=== PATIENT | female | born 1940 | race Caucasian/White ===

== ENCOUNTER 2017-10-08 21:28 | Emergency (ER) | payer MEDICARE, OTHER ==
[~2017-10-08] VITALS: Ht 162.6 cm; Wt 73.8 kg
[2017-10-08 22:34] LABS: INFLUENZA A NONE DETECTED (NONE DETECT); INFLUENZA B NONE DETECTED (NONE DETECT)
[2017-10-08] MEDS ORDERED: AMOXICILLIN500 MG PO (23:14)
[2017-10-08 23:38] VITALS: BP 178/93
== END 2017-10-08 23:38 | disposition home or self-care (01) ==
LOC: ED 21:28
PROVIDERS: Emergency Medicine
DX: J40 Bronchitis, not specified as acute or chronic (principal); I10 Essential (primary) hypertension; E11.9 Type 2 diabetes mellitus without complications; Z87.01 Personal history of pneumonia (recurrent)

== ENCOUNTER 2018-09-23 11:35 | Emergency (ER) | payer MEDICARE, OTHER ==
[~2018-09-23] VITALS: Ht 162.6 cm; Wt 82.0 kg
[~2018-09-23 11:35] MED LIST: AMOXICILLIN500 MG PO
[2018-09-23] MEDS ORDERED: JANUVIA100 MG PO (11:51)
[2018-09-23] MEDS ORDERED: OMEPRAZOLE10 MG PO (11:52)
[2018-09-23] MEDS ORDERED: CALCIUM MAGNESIUM & PO (11:53)
[2018-09-23] MEDS ORDERED: NORVASC5 M1 PO (11:53)
[2018-09-23] MEDS ORDERED: METFORMIN500 MG PO (11:54)
[2018-09-23] MEDS ORDERED: COLESTIPOL1 GM PO (11:55)
[2018-09-23 12:24] LABS: HEMOGLOBIN 14.7 g/dl (12.0-16.0); IMMATURE GRANULOCYTES 0.2 % (0.0-5.0); MEAN CELL VOLUME 96.5 fL CALC (80.0-100.0); MEAN CORPUSCULAR HGB 32.2 pG CALC (26.0-32.0); MEAN CORPUSCULAR HGB CONC 33.4 g/L CALC (32.0-36.0); NEUT# 4.08 thou/uL (2.00-7.15); RED BLOOD COUNT 4.56 mill/uL (4.20-5.60); RED CELL DISTRI WIDTH 12.3 % (11.5-15.5)
[2018-09-23 12:35] LABS: ALBUMIN 4.3 g/dL (3.2-5.0); ALKALINE PHOSPHATASE 116 u/l (38-126); ANION GAP 16 (6-22 (CALC)); BILIRUBIN, TOTAL 0.7 mg/dL (0.0-1.4); BUN 16 mg/dL (8-23); BUN/CREATININE RATIO 20 (12-20 (CALC)); CARBON DIOXIDE 23 mmol/l (22-30); CHLORIDE 104 mmol/l (95-108); CREATININE 0.8 mg/dL (0.5-1.0); GFR > 60 ML/MIN (>=60 (CALC)); GFR FOR AFR.AMER. > 60 ML/MIN (>=60 (CALC)); POTASSIUM 4.3 mmol/l (3.5-5.1); SGOT/AST 68 u/l (9-36); SODIUM 139 mmol/l (137-146); TOTAL PROTEIN 7.3 g/dL (6.3-8.2)
[2018-09-23] MEDS ORDERED: MEDDOSEPAK PO (13:02)
[2018-09-23] MEDS ORDERED: BENADRYL 50MG C50 MG PO (13:02)
[2018-09-23 13:06] VITALS: BP 161/72
== END 2018-09-23 13:14 | disposition home or self-care (01) ==
LOC: ED 11:35
DX: J39.2 Other diseases of pharynx (principal); I10 Essential (primary) hypertension; E11.9 Type 2 diabetes mellitus without complications

== ENCOUNTER 2020-11-02 04:07 | Emergency (ER) | payer MEDICARE ==
[~2020-11-02] VITALS: Ht 160 cm; Wt 68.0 kg
[~2020-11-02 04:07] MED LIST changes: +BENADRYL 50MG C50 MG PO; +CALCIUM MAGNESIUM & PO; +COLESTIPOL1 GM PO; +JANUVIA100 MG PO; +MEDDOSEPAK PO; +METFORMIN500 M2 PO; +NORVASC5 M1 PO; +OMEPRAZOLE10 MG PO
[2020-11-02] MEDS ORDERED: INVOKANA100 MG PO (04:41)
[2020-11-02 05:18] LABS: HEMATOCRIT 42.7 % (37.0-47.0); HEMOGLOBIN 13.7 g/dl (12.0-16.0); IMMATURE GRANULOCYTES 0.2 % (0.0-5.0); MEAN CELL VOLUME 96.2 fL CALC (80.0-100.0); MEAN CORPUSCULAR HGB 30.9 pG CALC (26.0-32.0); MEAN CORPUSCULAR HGB CONC 32.1 g/dL CAL (32.0-36.0); NEUT# 2.5 thou/uL (2.00-7.15); RED BLOOD COUNT 4.44 mill/uL (4.20-5.60)
[2020-11-02 05:35] LABS: ALBUMIN 4.1 g/dL (3.2-5.0); ALKALINE PHOSPHATASE 91 u/l (38-126); ANION GAP 11 (6-22 (CALC)); BILIRUBIN, TOTAL 0.6 mg/dL (0.0-1.4); BUN 15 mg/dL (8-23); BUN/CREATININE RATIO 20 (12-20 (CALC)); CARBON DIOXIDE 27 mmol/l (22-30); CHLORIDE 106 mmol/l (95-108); CREATININE 0.8 mg/dL (0.5-1.0); GFR > 60 ML/MIN (>=60 (CALC)); GFR FOR AFR.AMER. > 60 ML/MIN (>=60 (CALC)); POTASSIUM 4.3 mmol/l (3.5-5.1); SGOT/AST 54 u/l (9-36); SODIUM 140 mmol/l (137-146); TOTAL PROTEIN 6.7 g/dL (6.3-8.2)
[2020-11-02 05:49] LABS: INTERNATIONAL NORMALIZED RATIO 1.1 RATIO (0.7-1.3); PROTHROMBIN TIME 10.9 SECONDS (9.0-12.5)
[2020-11-02] MEDS ORDERED: TORADOL PO (07:14)
[2020-11-02] MEDS ORDERED: ORPHENADRINE100 MG PO (07:14)
[2020-11-02 07:56] VITALS: BP 120/60
== END 2020-11-02 08:20 | disposition home or self-care (01) ==
LOC: ED 04:07
PROVIDERS: Emergency Medicine
DX: M79.651 Pain in right thigh (principal); M25.561 Pain in right knee; I10 Essential (primary) hypertension; E11.9 Type 2 diabetes mellitus without complications; Z79.84 Long term (current) use of oral hypoglycemic drugs
CPT/HCPCS: L1830